=== PATIENT | male | born 1985 | race Caucasian/White ===

== ENCOUNTER 2020-07-26 03:07 | Emergency (ER) | payer MEDICAID, SELFPAY ==
--- NOTE | 2020-07-26 03:18 | ED.GENADULT ---
HPI - General Adult General Chief complaint: Extremity Injury, Lower Stated complaint: toe pain Time Seen by Provider: 07/26/20 03:13 History of Present Illness HPI narrative: Patient is a 34-year-old gentleman who presents the emergency department with chief complaint of left great toe pain. Patient states that he has had an ingrown toenail for some time now and states that he got worse tonight. The patient denies fever denies streaking states he tried to drain the wound but could not get any pus out of it. Patient denies streaks up his leg denies fluctuance. Related Data Home Medications Medication Instructions Recorded Confirmed No Home Medications 07/26/20 Allergies Allergy/AdvReac Type Severity Reaction Status Date / Time No Known Allergies Allergy Unverified 07/26/20 03:32 Review of Systems Review of Systems: Narrative: A 10 system review of systems was completed on the patient and is negative except for what is stated in the HPI. Nursing and ancillary documentation was reviewed. PMFSH Social History Social History Gender identity (if verbalized by the patient): Male Sexual Orientation (if Verbalized by the Patient): Straight or Heterosexual Comments Patient reports no significant past medical history Social history the patient was recently released from [facility] denies illicit drug use Exam Narrative: Exam Narrative: GENERAL: Well-appearing, well-nourished, and in no acute distress. HEAD: Normocephalic, atraumatic. EYES: PERRLA and EOMI. ENT: Nares clear, no rhinorrhea or epistaxis. Mucous membranes moist. NECK: Supple. CHEST: Clear to auscultation. No respiratory distress. HEART: Regular rate and rhythm. No murmur heard. Normal peripheral pulses. ABDOMEN: Soft, nontender, nondistended, normal active bowel sounds. EXTREMITIES: Normal range of motion. No edema. Left great toe there is erythema in the cuticle area and along the sides. The nail is broken at an angle. There is no fluctuance noted SKIN: Warm, dry, no rash. NEURO: No focal deficits. Alert and oriented x3. PSYCH: Normal mood and affect. Course Vital Signs Vital signs: Vital Signs Temperature 37.0 C 07/26/20 03:27 Pulse Rate 113 H 07/26/20 03:27 Respiratory Rate 18 07/26/20 03:27 Blood Pressure 137/99 H 07/26/20 03:27 Pulse Oximetry 100 07/26/20 03:27 Temperature 37.0 C 07/26/20 03:27 Pulse Rate 107 H 07/26/20 03:30 Respiratory Rate 18 07/26/20 03:30 Blood Pressure 137/99 H 07/26/20 03:30 Pulse Oximetry 99 07/26/20 03:30 Medical Decision Making Vital Signs Vital Signs: Vital Signs Temperature 37.0 C 07/26/20 03:27 Pulse Rate 113 H 07/26/20 03:27 Respiratory Rate 18 07/26/20 03:27 Blood Pressure 137/99 H 07/26/20 03:27 Pulse Oximetry 100 07/26/20 03:27 Temperature 37.0 C 07/26/20 03:27 Pulse Rate 107 H 07/26/20 03:30 Respiratory Rate 18 07/26/20 03:30 Blood Pressure 137/99 H 07/26/20 03:30 Pulse Oximetry 99 07/26/20 03:30 Discharge Plan Discharge Clinical Impression: Ingrowing toenail with infection Patient Disposition: Home, Self-Care Condition: Stable Instructions: Antibiotic Form, Ingrown Nail (ED) Prescriptions: No Action No Home Medications RF: 0 Follow-up/Referrals: Keanu Ybarra MD [Physician] - UNKNOWN,DOCTOR [Non-Staff] - Time of Disposition:
[2020-07-26 03:27] VITALS: BP 137/99; PULSE 113; RESP 18; TEMP 37; O2SAT 100
[2020-07-26 03:30] VITALS: BP 137/99; PULSE 107; RESP 18; O2SAT 99
[2020-07-26] MEDS: HYDROcodone/acetaminophen (*CRX) 5-325 MG TABLET 1 TAB PO (03:31)
== END 2020-07-26 04:20 | disposition home or self-care (01) ==
PROVIDERS: Emergency Provider Emergency Medicine
DX: L60.0 Ingrowing nail (principal); L08.9 Local infection of the skin and subcutaneous tissue, unspecified
CPT/HCPCS: 99283; A9270

== ENCOUNTER 2020-09-11 15:41 | Inpatient (IN) | payer MEDICAID, SELFPAY ==
[2020-09-11] VITALS (33 sets, daily range): BP systolic 101–134; BP diastolic 65–97; PULSE 110–138; RESP 17–85; TEMP 36–36.6; O2SAT 22–96; BMI 35.9
--- NOTE | ~2020-09-11 | XR_ITS ---
EXAMINATION: XR chest 1V portable DATE: 09/11/2020 17:15 INDICATION: Heroin overdose. TECHNIQUE: frontal view of the chest was obtained. COMPARISON: Chest radiograph dated 03/01/2019 FINDINGS: Asymmetric patchy airspace opacities throughout the left lung with small region in the right infrahil ar region. No pleural effusion or pneumothorax. The cardiomediastinal silhouette is normal. IMPRESSION: 1. Bilateral lung disease more extensive on the left which given provided history and distribution is most suspicious for aspiration pneumonitis with differential including pneumonia, asymmetric pulmona ry edema and pulmonary hemorrhage. Reviewed, dictated and finalized at location A. IZATION ENGINEER IMPRESSION: 1. Bilateral lung disease more extensive on the left which given provided histo ry and distribution is most suspicious for aspiration pneumonitis with differen tial including pneumonia, asymmetric pulmonary edema and pulmonary hemorrhage.
--- NOTE | ~2020-09-11 | CT_ITS ---
EXAMINATION: CTA chest PE protocol EXAM DATE: 09/11/2020 17:44 INDICATION: Shortness of breath. TECHNIQUE: Spiral CTA of the chest (pulmonary arteries) was performed with 100 cc Omnipaque 350 intr avenous contrast injection. Images were acquired during the pulmonary arterial phase. Coronal maxi mum intensity projection 3D-reconstructions were created by the technologist on dedicated workstation . Axial, coronal and sagittal reformatted images were reviewed. The dose-length product (DLP) for t his examination was 973.43 mGy-cm. The exposure was tailored according to patient size (auto mA exp osure control), and iterative reconstruction (ASIR) was used as additional dose reduction technique. Correlation is made to chest x-ray earlier same date. FINDINGS: There are no pulmonary emboli in the 1st through 3rd order (central and interlobar) pulmon magan arteries. Some loss of attenuation in the segmental pulmonary arteries due to respiratory motion , but no intraluminal filling defects suspected. No thoracic aortic dissection. There is dense left lower lobe multisegmental consolidation and smaller segmental right lower lobe co nsolidation. Surrounding groundglass opacities and also in the upper lobes left greater than right. L ikely acute infectious process. Would consider both viral and bacterial pneumonia. There are no pleur al or pericardial effusions. Tracheobronchial tree is patent. There is no mediastinal, hilar or a xillary lymphadenopathy. There is no pneumothorax. Heart normal in size. No evidence of coronar y arterial calcification. Upper abdomen is unremarkable. There is thoracic spondylosis without ost eoblastic or osteolytic lesions identified. IMPRESSION: 1. Limited segmental evaluation, but no pulmonary emboli are suspected. 2. Extensive left-sided, moderate right-sided pneumonia. Reviewed, dictated and finalized at location A. E SALESPERSON
--- NOTE | 2020-09-11 15:49 | PC.NURSE ---
vorb to give narcan 2mg ivp from dr shearer in room. saturation remains to be 69%, pt placed on NRB
--- NOTE | 2020-09-11 15:53 | PC.NURSE ---
PT CONTINUES TO STAY WITH SATURATION OF 68-70%
[2020-09-11 16:02] LABS: Alveolar/Arterial O2 Gradient 630.1 mmHg; Base Excess ABG -4.5 mEq/l (+/-2.0); Fractional Inspired Oxygen 100 %; HCO3 ABG 21.8 mEq/l (22.0-26.0); Methemoglobin ABG 0.4 %THb (0-1.5); Oxyhemoglobin 69.9 % THb (90.0-100.0); PCO2 ABG 44.7 mmHg (35.0-45.0); PO2 FiO2 Ratio Arterial Blood 0.38 %; Reduced Hemoglobin 26.7 %THb (0-5.0); Total Hemoglobin 17.4 g/dL (12.0-18.0); pH ABG 7.307 (7.350-7.450)
[2020-09-11 16:04] LABS: Oxygen Saturation ABG 67.1 % (95.0-100.0); PO2 ABG 38.2 mmHg (80.0-100.0)
[2020-09-11] MEDS: ONDANSETRON INJ 4 MG/2 ML VIAL (16:04)
[2020-09-11] MEDS: SODIUM CHLORIDE 0.9% IV 1,000 ML 999 ML (16:04)
[2020-09-11] MEDS: NALOXONE HCL INJ 2 MG/2 ML AMP 6 MG (16:04)
[2020-09-11 16:05] LABS: Device NON-REBREATHER MASK; Modified Allen's Test Pass; Site Drawn RIGHT RADIAL
--- NOTE | 2020-09-11 16:08 | ECG_ITS ---
Measurements Intervals [place] Rate: 121 P: 39 MT: 174 QRS: -1 QRSD: 85 T: 25 QT: 302 QTc: 429 Interpretive Statements SINUS TACHYCARDIA DELAYED PRECORDIAL R/S TRANSITION LOW QRS VOLTAGE IN PRECORDIAL LEADS BASELINE ARTIFACT- I, II, AVR, AVL, AVF, V1-V2, V5-V6 ABNORMAL ECG Electronically Signed On 09-11-2020 19:47:16 [employer] SOFTWARE ENGINEER[employer] by Kory Islas D.O.
--- NOTE | 2020-09-11 16:19 | PC.NURSE ---
decision made to bipap the pt respiratory in room
[2020-09-11 16:29] LABS: Basophils Percent Auto 0.2 % (0.2-1.2); Eosinophils Absolute Auto 0.1 K/mm3 (0-0.3); Eosinophils Percent Auto 0.3 % (0-4.4); Hematocrit 50.1 % (42.0-52.0); Immature Granulocyte Absolute 0.08 K/mm3 (0.00-0.031); Immature Granulocyte Percent A 0.4 % (0-0.5); Lymphocytes Absolute Auto 2.05 K/mm3 (0.9-3.2); Lymphocytes Percent Auto 11.5 % (18.3-44.2); Mean Corpuscular HGB Conc 33.9 g/dl (32-36); Mean Corpuscular Volume 97.3 fl (80-100); Mean Platelet Volume 10.9 fl (7.4-10.4); Monocytes Absolute Auto 0.8 K/mm3 (0.1-0.6); Monocytes Percent Auto 4.5 % (2.6-8.5); Neutrophils Absolute Auto 14.9 K/mm3 (1.3-6.7); Neutrophils Percent Auto 83.1 % (45.5-73.1); Platelet Count Result 195 k/mm3 (150-375); Red Blood Count 5.15 M/mm3 (4.6-6.20); Red Cell Distribution Width 13.2 % (11.5-14.5); White Blood Count 17.9 K/mm3 (4.5-10.0)
--- NOTE | 2020-09-11 16:30 | PC.NURSE ---
NO URINE SPECIMEN AT THIS TIME WORKING ON CORRECTING O2 SATURATION
[2020-09-11 16:38] LABS: INR 0.9; Prothrombin Time 12.5 Seconds (11.1-14.7)
[2020-09-11 16:39] LABS: Partial Thromboplastin Time 28.5 SECONDS (22.3-36.8)
[2020-09-11 16:41] LABS: Alanine Aminotransferase 48 U/L (4-50); Albumin Level 3.5 g/dL (3.5-5.1); Alkaline Phosphatase 96 U/L (38-126); Anion Gap 3 mmol/L (8-16); Aspartate Amino Transferase 32 U/L (17-59); Bilirubin,Total 0.3 mg/dL (0.2-1.3); Blood Urea Nitrogen 17 mg/dL (9-20); Calcium 7.8 mg/dL (8.4-10.2); Carbon Dioxide 29 mmol/L (22-30); Chloride 105 mmol/L (98-107); Estimated CRCL calculation 143 ml/min; Estimated Glomerular Filt Rate > 60; Glucose 230 mg/dL (75-110); Potassium 4.4 mmol/L (3.4-5.0); Sodium 137 mmol/L (137-145)
[2020-09-11 16:53] LABS: NT Pro B Type Natriuretic Pept 23 PG/ML (5-100); Troponin I < 0.012 ng/mL (0.000-0.034)
--- NOTE | 2020-09-11 16:55 | PC.NURSE ---
Called lab to add on d dimer
--- NOTE | 2020-09-11 17:03 | PC.NURSE ---
asked pt for urine sample pt stated he is unable to provide sample at this time
--- NOTE | 2020-09-11 17:15 | PC.NURSE ---
tolerating bipap a little better sat noted to drop to 86% respiratory to reassess
[2020-09-11 17:38] LABS: Alveolar/Arterial O2 Gradient 634.3 mmHg; Base Excess ABG -10.8 mEq/l (+/-2.0); Fractional Inspired Oxygen 100 %; Oxygen Content ABG 14.6 %vol (16.0-22.0); Oxygen Saturation ABG 91.3 % (95.0-100.0); Oxyhemoglobin 90.4 % THb (90.0-100.0); PO2 ABG 58.9 mmHg (80.0-100.0); PO2 FiO2 Ratio Arterial Blood 0.59 %; Total Hemoglobin 11.5 g/dL (12.0-18.0); pH ABG 7.399 (7.350-7.450)
[2020-09-11 17:41] LABS: PCO2 ABG 19.8 mmHg (35.0-45.0)
[2020-09-11 17:42] LABS: Device NON-INVASIVE VENT; Modified Allen's Test Pass; Non-Invasive Expiratory Pressure 6 CMH2O; Non-Invasive Inspiratory Pressure 18 CMH2O; Non-Invasive Vent Rate 10 /MIN; Site Drawn LEFT RADIAL
--- NOTE | 2020-09-11 17:49 | PC.NURSE ---
decision made to put pt on high arti NC
--- NOTE | 2020-09-11 18:00 | PC.NURSE ---
PT ASKED FOR URINE, UNABLE TO AT THIS TIME POLITELY REFUSED CATHETER
--- NOTE | 2020-09-11 18:07 | ED.GENADULT ---
HPI - General Adult General Chief complaint: Overdose Stated complaint: overdose Time Seen by Provider: 09/11/20 15:49 Source: EMS Mode of arrival: EMS History of Present Illness HPI narrative: Patient is 34 years old white male brought to the emergency room by ambulance because found by his family unresponsive. History of opioid abuse. Patient received 6 mg of Narcan prior to arrival to the emergency room. Currently patient is awake, alert oriented x4 with hypoxia. Patient denies shortness of breath or chest pain. Patient reports taking fentanyl and heroin, probably too much today compared to the past. Patient denies any fever, chills, nausea, vomiting Related Data Home Medications Medication Instructions Recorded Confirmed No Home Medications 07/26/20 09/11/20 Allergies Allergy/AdvReac Type Severity Reaction Status Date / Time No Known Allergies Allergy Verified 09/11/20 15:52 Review of Systems Review of Systems: Narrative: CONSTITUTIONAL: Denies fever, chills, or sweats. EYES: Denies visual changes, redness, or discharge. ENT: Denies rhinorrhea, congestion, sore throat, or otalgia. CARDIOVASCULAR: Denies chest pain, palpitations, or edema. RESPIRATORY: Denies cough or dyspnea. GASTROINTESTINAL: Denies abdominal pain, nausea, vomiting, or diarrhea. GENITOURINARY: Denies dysuria or hematuria. SKIN: Denies rash or itching. MUSCULOSKELETAL: Denies back pain, joint pain, or myalgia. NEUROLOGIC: Denies headache, numbness, or weakness. PSYCHIATRIC: Denies anxiety or depression. PMFSH Social History Social History Gender identity (if verbalized by the patient): Male Exam Narrative: Exam Narrative: General appearance: Well-developed, well-nourished Skin: Normal color Head: Normocephalic, nontraumatic Eyes: Clear conjunctiva ENT: Oropharynx normal, ears normal, nose normal Neck: Supple, nontender Chest and respiratory: Airway patent, no respiratory distress, no accessory muscle use Heart: Tachycardia Abdomen: Soft, nontender, no organomegaly, quiet bowel sounds Vascular: Normal peripheral pulses, normal capillary refill. Musculoskeletal: Normal range of motion, nontender back Neurologic: Alert and oriented ?3, BATTERY CHARGER TESTER is normal as tested, no gross motor deficit Course Course Emergency Course: Stable Vital Signs Vital signs: Vital Signs Temperature 36.0 C L 09/11/20 15:39 Pulse Rate 132 H 09/11/20 15:39 Respiratory Rate 27 H 09/11/20 15:39 Blood Pressure 108/71 09/11/20 15:39 Pulse Oximetry 60 L 09/11/20 15:39 Temperature 36.0 C L 09/11/20 15:39 Pulse Rate 121 H 09/11/20 17:47 Respiratory Rate 22 H 09/11/20 17:47 Blood Pressure 131/97 H 09/11/20 17:46 Pulse Oximetry 92 09/11/20 17:47 Medical Decision Making MDM Narrative Medical decision making narrative: Opioid overdose with respiratory depression is my concern. Also aspiration pneumonia. Labs, D-dimer, blood culture, ABG, chest x-ray, ordered. Further plan to follow Differential Diagnosis Differential Diagnosis: Opioid respiratory depression, aspiration pneumonia, pulmonary embolism Vital Signs Vital Signs: Vital Signs Temperature 36.0 C L 09/11/20 15:39 Pulse Rate 132 H 09/11/20 15:39 Respiratory Rate 27 H 09/11/20 15:39 Blood Pressure 108/71 09/11/20 15:39 Pulse Oximetry 60 L 09/11/20 15:39 Temperature 36.0 C L 09/11/20 15:39 Pulse Rate 121 H 09/11/20 17:47 Respiratory Rate 22 H 09/11/20 17:47 Blood Pressure 131/97 H 09/11/20 17:46 Pulse Oximetry 92 09/11/20 17:47 Lab Data Result diagrams: 09/11/20 16:21 09/11/20 16:21 Labs
[2020-09-11] MEDS: SODIUM CHLORIDE 0.9% IV 1,000 ML 100 ML IV CONT (20:44)
--- NOTE | 2020-09-11 21:52 | PM.IMHP ---
H&P: HPI History of Present Illness Date/Time: 09/11/20 21:52 Chief Complaint: Unresponsive due to opiate overdose Narrative: Juma Almeida is a 34 year old male who has a history of drug use with narcotics. Patient was brought to the emergency room by ambulance because he was found by his family to be unresponsive. The patient stated that he did use some heroin button and snorted fentanyl. The patient received 6 mg of nor can prior to arrival to the emergency room. The patient stated that he took more on drugs and he normally takes. The patient denies any exposure to COVID. He denies any fever chills. Patient's pulse rate was 121-132 respirations were 22-27. His D-dimer was elevated to 3.5. White count 17.9. Troponin was negative. The pH on his 1st gases was 7.307 and the patient was placed on a BiPAP repeat gases pH was 7.399. Patient is currently on a non-rebreather and he is falling asleep during the interview. On the left which given provided history and distributions most suspicious for aspiration pneumonia with differential including pneumonia, asymmetric pulmonary edema and pulmonary hemorrhage. LL evaluation but no pulmonary emboli are suspected on his chest CT a. Extensive left-sided moderate right-sided pneumonia. The patient was given Zofran IV fluids and Levaquin. Then he was started on Zosyn for possibility of aspiration pneumonia. The patient was swabbed for COVID-19 and placed on droplet isolation. Patient was admitted inpatient services on the date of service of 09/11/2020 Review of Systems Review of Systems: All systems reviewed & are unremarkable except as noted in HPI and below Constitutional: Constitutional: Reports as per HPI and Reports no additional constitutional complaints Eyes: Eyes: Reports as per HPI and Reports no additional eye complaints ENT: Reports system reviewed and no additional complaints, except as documented and Reports Normal hearing present Cardiovascular: Cardiovascular: Reports no additional cardiovascular complaints Respiratory: Respiratory: Reports no additional respiratory complaints and Reports no additional respiratory complaints Gastrointestinal: Gastrointestinal: Reports as per HPI and Reports no additional gastrointestinal complaints Musculoskeletal: Musculoskeletal: Reports no additional musculoskeletal complaints Integumentary/Breasts: Skin/Breast: Reports system reviewed and no additional complaints, except as docu and Reports as per HPI Neurologic: Reports system reviewed and no additional complaints, except as documented, Reports as per HPI and Reports Normal hearing present Psychiatric: Psychiatric: Reports no additional psychiatric complaints and Reports as per HPI Endocrine: Endocrine: Reports no additional endocrine complaints Hematologic/Lymphatic: Hematologic/Lymphatic: Reports no additional hematologic/lymphatic complaints Allergic/Immunologic: Allergic/Immunologic: Reports no additional allergic/immunologic complaints [facility] Past Medical History Medical History (Updated 09/11/20 @ 22:11 by Alessandra Dumont NP) Tobacco abuse Surgical History Surgical History (Updated 09/11/20 @ 22:03 by Alessandra Dumont NP) No pertinent past surgical history Family History Family History (Updated 09/11/20 @ 22:04 by Alessandra Dumont NP) Mother Hepatitis Other Unknown family medical history Social History Social History (Updated 09/11/20 @ 22:06 by Alessandra Dumont NP) Social History: The patient has a 16-year-old son. The patient smokes a half pack a cigarettes a day. He is from his lives with his girlfriend. He is not currently working at this time. He tends to use heroin and fentanyl but does not use marijuana. Denies any alcohol use. The patient tells me does not have a durable power workers compensation attorney for healthcare and that he is a full code. Alcohol intake: never Substance use: current Substance use type: heroin and opiates
[2020-09-12] VITALS (19 sets, daily range): BP systolic 108–116; BP diastolic 58–75; PULSE 95–122; RESP 12–20; TEMP 35.8–36.9; O2SAT 91–96
[2020-09-12 00:29] LABS: Add Urine Microscopic? YES; Appearance Urine Clear (Clear); Bacteria Urine Trace /hpf; Bilirubin Urine Negative (Negative); Blood Urine Negative (Negative); Color Urine Yellow (Yellow); Glucose Urine UA 1+ mg/dL (Negative); Ketones Urine Negative (Negative); Leukocyte Esterase Ur Negative LEU/UL (Negative); Mucus Urine Rare /lpf; Nitrate Urine Negative (Negative); Protein Urine 1+ mg/dL (Negative); RBC Urine 0-2 /hpf (0-2); Squamous Epithelial Cell Urine Rare /hpf (Few); Urobilinogen Urine Negative mg/dL (<2.0)
[2020-09-12 00:30] LABS: Specific Grav Ur 1.047 (1.001-1.035)
[2020-09-12 00:46] LABS: Alveolar/Arterial O2 Gradient 579.5 mmHg; Base Excess ABG -0.8 mEq/l (+/-2.0); Carboxyhemoglobin 0.3 % THb (0-2.0); Fractional Inspired Oxygen 100 %; Methemoglobin ABG 0.7 %THb (0-1.5); Oxygen Content ABG 23.9 %vol (16.0-22.0); Oxygen Saturation ABG 96.4 % (95.0-100.0); Oxyhemoglobin 95.6 % THb (90.0-100.0); PO2 ABG 88.5 mmHg (80.0-100.0); PO2 FiO2 Ratio Arterial Blood 0.88 %; Reduced Hemoglobin 3.4 %THb (0-5.0); Total Hemoglobin 17.8 g/dL (12.0-18.0); pH ABG 7.362 (7.350-7.450)
[2020-09-12 00:47] LABS: Device NON-REBREATHER MASK; Modified Allen's Test Pass; Site Drawn RIGHT RADIAL
[2020-09-12 01:08] LABS: Barbiturate Screen Urine Negative (Negative); Benzodiazepines Screen Urine Negative (Negative)
[2020-09-12 01:13] LABS: Cannabinoid Screen Urine Negative (Negative); Cocaine Screen Urine Negative (Negative); Methadone Screen Urine Negative (Negative); Opiate Screen Urine Negative (Negative); Phencyclidine Screen Urine Negative (Negative)
[2020-09-12 01:24] LABS: Amphetamine Screen Urine Positive (Negative)
[2020-09-12] MEDS: ALBUTEROL SULFATE NEB 2.5 MG/0.5 ML INH 5 MG INHALATION ×4 (03:35→20:49)
[2020-09-12] MEDS: SODIUM CHLORIDE 0.9% IV 1,000 ML 100 ML IV CONT ×2 (05:24→17:38)
[2020-09-12 05:43] LABS: Basophils Percent Auto 0.1 % (0.2-1.2); Eosinophils Percent Auto 0.1 % (0-4.4); Hematocrit 45.1 % (42.0-52.0); Hemoglobin 15.6 g/dL (14.0-18.0); Immature Granulocyte Absolute 0.03 K/mm3 (0.00-0.031); Immature Granulocyte Percent A 0.2 % (0-0.5); Lymphocytes Absolute Auto 1.63 K/mm3 (0.9-3.2); Lymphocytes Percent Auto 12.7 % (18.3-44.2); Mean Corpuscular HGB Conc 34.6 g/dl (32-36); Mean Corpuscular Hemoglobin 32.4 pg (26-34); Mean Corpuscular Volume 93.6 fl (80-100); Mean Platelet Volume 11.3 fl (7.4-10.4); Monocytes Absolute Auto 0.7 K/mm3 (0.1-0.6); Monocytes Percent Auto 5.2 % (2.6-8.5); Neutrophils Absolute Auto 10.5 K/mm3 (1.3-6.7); Neutrophils Percent Auto 81.7 % (45.5-73.1); Platelet Count Result 193 k/mm3 (150-375); Red Blood Count 4.82 M/mm3 (4.6-6.20); White Blood Count 12.9 K/mm3 (4.5-10.0)
[2020-09-12 05:50] LABS: Anion Gap 4 mmol/L (8-16); Blood Urea Nitrogen 17 mg/dL (9-20); Calcium 7.9 mg/dL (8.4-10.2); Carbon Dioxide 26 mmol/L (22-30); Chloride 104 mmol/L (98-107); Estimated CRCL calculation 159 ml/min; Estimated Glomerular Filt Rate > 60; Glucose 118 mg/dL (75-110); Potassium 4.1 mmol/L (3.4-5.0); Sodium 134 mmol/L (137-145)
[2020-09-12] MEDS: ENOXAPARIN 40 MG/0.4 ML SYRINGE SUB-Q (07:59)
--- NOTE | 2020-09-12 13:10 | PM.IMPN ---
Progress Note: A&P Assessment and Plan (1) Aspiration pneumonia: Qualifiers: Aspiration pneumonia type: unspecified Laterality: bilateral Lung location: lower lobe of lung Qualified Code(s): J69.0 - Pneumonitis due to inhalation of food and vomit Code(s): J69.0 - Pneumonitis due to inhalation of food and vomit Status: Acute Assessment and Plan: On Zosyn Continuous pulse ox (2) Opioid overdose: Qualifiers: Encounter type: initial encounter Injury intent: accidental or unintentional Qualified Code(s): T40.2X1A - Poisoning by other opioids, accidental (unintentional), initial encounter Code(s): T40.2X1A - Poisoning by other opioids, accidental (unintentional), initial encounter Status: Acute Assessment and Plan: Resolved. Needs follow up in the outpatient setting (3) Tobacco abuse: Code(s): Z72.0 - Tobacco use Status: Chronic Assessment and Plan: Nicotine patch as needed (4) Suspected COVID-19 virus infection: Code(s): Z20.822 - Contact with and (suspected) exposure to COVID-19 Status: Acute Assessment and Plan: Awaiting serology Subjective Date/time seen: 09/12/20 13:10 Patient states that he is feeling well. Review of Systems Review of Systems: Narrative: Patient basically with complains. Constitutional: Comments: no fevers, no rigors, no chills. Eyes: Comments: no vision changes. ENT: Comments: no nasal congestion, no ear ache, no throat pain. Cardiovascular: Comments: no chest pain, no leg swelling, no orthopnea, no pnd. Respiratory: Comments: no sob, no cough, no sputum production. Gastrointestinal: Comments: no n/v/abdominal pain. Musculoskeletal: Comments: no joint pain. Integumentary/Breasts: Comments: no rashes. Neurologic: Comments: loc, unresponsiveness. Exam Narrative: Exam Narrative: Sitting in bed Const: General: cooperative, comfortable, no acute distress, alert, awake and Physically active Nutritional Appearance: overweight Orientation/consciousness: patient oriented x3 Limitations: no limitations HENMT: Head: normal to inspection and normocephalic Ears: hearing grossly normal bilaterally General nose exam: Normal external nose present Face and sinus: normal facial exam Eyes: General: appearance normal, both eyes and all related structures Pupils: Equal, round and reactive pupils present EOM: EOMs intact bilaterally Neck: Neck: no lymphadenopathy, supple and no JVD Resp: Auscultation: rales on the right at the base and bilateral Cardio: Jugular venous distension: no JVD Rate: regular rate Rhythm: regular rhythm GI: Inspection: obesity GI Palp: Yes Soft to palpation and Yes No hepatosplenomegaly present Skin: Rashes: no rashes Neuro: General: patient oriented x3, CN's II-XI intact bilaterally and other (Unresponsive.) Cranial nerves: Yes CN's II-XII intact bilaterally and Yes Equal, round and reactive pupils present Cognition (Neuro): normal cognition Speech: normal speech Motor exam (neuro): 5/5 motor strength present throughout Objective Data Vital Signs Vital Signs: Vital Signs - 24 hr 09/11/20 15:39 09/11/20 15:52 09/11/20 16:00 Temperature 96.8 F L Pulse Rate 132 H 138 H 129 H Respiratory Rate 27 H 28 H 38 H Blood Pressure 108/71 Pulse Oximetry 60 L 75 L 74 L 09/11/20 16:01 09/11/20 16:02 09/11/20 16:15 Temperature Pulse Rate 136 H 129 H 130 H Respiratory Rate 25 H 18 21 H Blood Pressure 101/73 Pulse Oximetry 89 L 72 L 79 L 09/11/20 16:20 09/11/20 16:30 09/11/20 16:45 Temperature Pulse Rate 132 H 131 H 132 H Respiratory Rate 85 H 22 H 26 H Blood Pressure 111/68 Pulse Oximetry 22 L 93 83 L 09/11/20 17:00 09/11/20 17:14 09/11/20 17:15 Temperature Pulse Rate 126 H 125 H 122 H Respiratory Rate 17 31 H 29 H Blood Pressure 109/65 109/65 Pulse Oximetry 90 84 L 09/11/20 17:45 09/11/20 17:46 09/11/20 17:47 Tem
[2020-09-12 20:12] LABS: SARS-CoV-2 RNA PCR Negative
[2020-09-13] VITALS (12 sets, daily range): BP systolic 101–120; BP diastolic 51–67; PULSE 88–114; RESP 12–26; TEMP 36.6–37.1; O2SAT 83–98
[2020-09-13] MEDS: SODIUM CHLORIDE 0.9% IV 1,000 ML 100 ML IV CONT ×2 (00:11→15:48)
[2020-09-13] MEDS: ALBUTEROL SULFATE NEB 2.5 MG/0.5 ML INH 5 MG INHALATION ×2 (08:19→15:15)
[2020-09-13] MEDS: ENOXAPARIN 40 MG/0.4 ML SYRINGE SUB-Q (08:36)
--- NOTE | 2020-09-13 10:55 | PC.NURSE ---
This patient, Juma Almeida, was transferred to [[id number]] on 09/13/20 at 1055. Personal belongings sent with patient. Report given to [FELIPE OLVERA]. Appropriate documentation sent with patient.
--- NOTE | 2020-09-13 17:57 | PM.IMPN ---
Progress Note: A&P Assessment and Plan (1) Aspiration pneumonia: Qualifiers: Aspiration pneumonia type: unspecified Laterality: bilateral Lung location: lower lobe of lung Qualified Code(s): J69.0 - Pneumonitis due to inhalation of food and vomit Code(s): J69.0 - Pneumonitis due to inhalation of food and vomit Status: Acute Assessment and Plan: On Zosyn Appears to have improved. (2) Opioid overdose: Qualifiers: Encounter type: initial encounter Injury intent: accidental or unintentional Qualified Code(s): T40.2X1A - Poisoning by other opioids, accidental (unintentional), initial encounter Code(s): T40.2X1A - Poisoning by other opioids, accidental (unintentional), initial encounter Status: Acute Assessment and Plan: Will follow up in the outpatient setting. (3) Tobacco abuse: Code(s): Z72.0 - Tobacco use Status: Chronic Assessment and Plan: Nicotine patch as needed (4) Suspected COVID-19 virus infection: Code(s): Z20.822 - Contact with and (suspected) exposure to COVID-19 Status: Acute Assessment and Plan: Ruled out Subjective Date/time seen: 09/13/20 17:57 I feel much better. Review of Systems Review of Systems: Narrative: no new issues Constitutional: Comments: no fevers, no rigors, no chills. Cardiovascular: Comments: no chest pain, no pnd, no orthopnea. Respiratory: Comments: no sob. Gastrointestinal: Comments: no n/v/abdominal pain. Musculoskeletal: Comments: no muscle pain. Integumentary/Breasts: Comments: no rashes Exam Narrative: Exam Narrative: Sitting in bed. Const: General: comfortable, no acute distress, alert, awake and Physically active Nutritional Appearance: overweight Orientation/consciousness: patient oriented x3 HENMT: Head: normocephalic Ears: hearing grossly normal bilaterally General nose exam: Normal external nose present Face and sinus: normal facial exam Eyes: General: appearance normal, both eyes and all related structures Pupils: Equal, round and reactive pupils present EOM: EOMs intact bilaterally Neck: Neck: no lymphadenopathy, supple and no JVD Resp: Effort & Inspection: normal respiratory effort and able to speak in complete sentences Auscultation: clear to auscultation bilaterally Cardio: Jugular venous distension: no JVD Rate: regular rate Rhythm: regular rhythm GI: GI Palp: Yes Soft to palpation and Yes No hepatosplenomegaly present Skin: Rashes: no rashes Neuro: General: patient oriented x3 and CN's II-XI intact bilaterally Cranial nerves: Yes CN's II-XII intact bilaterally and Yes Equal, round and reactive pupils present Extrem: General: no pedal edema Objective Data Vital Signs Vital Signs: Vital Signs - 24 hr 09/12/20 20:00 09/12/20 20:49 09/12/20 21:03 Temperature Pulse Rate 119 H 99 Respiratory Rate 18 16 Blood Pressure Pulse Oximetry 92 09/13/20 00:00 09/13/20 04:08 09/13/20 04:09 Temperature 98.4 F Pulse Rate 110 H Respiratory Rate 16 Blood Pressure 116/61 Pulse Oximetry 92 86 L 93 09/13/20 06:02 09/13/20 08:00 09/13/20 08:22 Temperature 97.8 F Pulse Rate 102 H Respiratory Rate 12 Blood Pressure 101/51 L Pulse Oximetry 91 90 90 09/13/20 08:26 09/13/20 08:32 09/13/20 15:20 Temperature Pulse Rate 114 H 112 H 107 H Respiratory Rate 26 H 20 20 Blood Pressure Pulse Oximetry 09/13/20 15:25 Temperature Pulse Rate 88 Respiratory Rate 20 Blood Pressure Pulse Oximetry Intake/Output Intake/Output: Intake & Output 09/10/20 09/11/20 09/12/20 09/13/20 23:59 23:59 23:59 23:59 Intake Total 1200 7080 2350 Output Total 3200 1980 Balance 1200 3880 370 Meds/Results Medications: Active Medications Generic Name Dose Route Start Last Admin Trade Name Freq PRN Reason Stop Dose Admin Albuterol 5 mg 09/11/20 20:00 09/13/20 15:15 Albuterol Sulfate Neb 2.5
[2020-09-14] MEDS: SODIUM CHLORIDE 0.9% IV 1,000 ML 100 ML IV CONT (03:39)
[2020-09-14] MEDS: ALBUTEROL SULFATE NEB 2.5 MG/0.5 ML INH 5 MG INHALATION (03:47)
[2020-09-14 03:48] VITALS: PULSE 94; RESP 20
[2020-09-14 04:00] VITALS: BP 113/66; PULSE 100; RESP 18; TEMP 37.7; O2SAT 92
[2020-09-14 06:05] LABS: Basophils Percent Auto 0.1 % (0.2-1.2); Eosinophils Absolute Auto 0.2 K/mm3 (0-0.3); Eosinophils Percent Auto 2.7 % (0-4.4); Hematocrit 44.6 % (42.0-52.0); Immature Granulocyte Absolute 0.03 K/mm3 (0.00-0.031); Immature Granulocyte Percent A 0.4 % (0-0.5); Immature Platelet Fraction Pct 5.7 % (0.9-11.2); Lymphocytes Absolute Auto 2.02 K/mm3 (0.9-3.2); Lymphocytes Percent Auto 27.4 % (18.3-44.2); Mean Corpuscular HGB Conc 33.6 g/dl (32-36); Mean Corpuscular Hemoglobin 32.1 pg (26-34); Mean Corpuscular Volume 95.3 fl (80-100); Mean Platelet Volume 11.3 fl (7.4-10.4); Monocytes Absolute Auto 0.5 K/mm3 (0.1-0.6); Monocytes Percent Auto 6.9 % (2.6-8.5); Neutrophils Absolute Auto 4.6 K/mm3 (1.3-6.7); Neutrophils Percent Auto 62.5 % (45.5-73.1); Platelet Count Result 147 k/mm3 (150-375); Red Blood Count 4.68 M/mm3 (4.6-6.20); White Blood Count 7.4 K/mm3 (4.5-10.0)
[2020-09-14 06:10] LABS: Anion Gap 4 mmol/L (8-16); Blood Urea Nitrogen 10 mg/dL (9-20); Calcium 8.3 mg/dL (8.4-10.2); Carbon Dioxide 24 mmol/L (22-30); Chloride 109 mmol/L (98-107); Estimated CRCL calculation 206 ml/min; Estimated Glomerular Filt Rate > 60; Glucose 109 mg/dL (75-110); Potassium 3.9 mmol/L (3.4-5.0); Sodium 137 mmol/L (137-145)
[2020-09-14] MEDS: ENOXAPARIN 40 MG/0.4 ML SYRINGE SUB-Q (08:26)
--- NOTE | 2020-09-14 10:29 | PCRCNOTE ---
PT. REFUSED BREATHING TX; MESSAGE LEFT FOR DR. FAGAN.
[2020-09-14 10:35] VITALS: O2SAT 93
--- NOTE | 2020-09-14 10:38 | PC.NURSE ---
Patient notified of risks of leaving AMA. Dr. Wetzel called multiple time and left message and paged over head. Patient signed AMA form.
--- NOTE | 2020-09-14 11:40 | PC.NURSE ---
Dr. Wetzel called again and she answered. She was then notified of the multiple calls and messages sent to her regarding the patient. Notified that patient signed out AMA at 1038. She called in an antibiotic and she wants me to call him so he can pick it up.
--- NOTE | 2020-10-12 15:52 | PM.DS ---
DS: Admitting Diagnosis Admitting Diagnosis Admitting Diagnosis: 1) Aspiration pneumonia: (2) Opioid overdose: (3) Tobacco abuse: (4) Suspected COVID-19 virus infection: DS: Discharge Diagnosis Discharge Diagnosis (1) Suspected COVID-19 virus infection: Code(s): Z20.822 - Contact with and (suspected) exposure to COVID-19 Status: Acute Assessment and Plan: ruled out (2) Tobacco abuse: Code(s): Z72.0 - Tobacco use Status: Chronic Assessment and Plan: encouraged tobacco cessation (3) Opioid overdose: Qualifiers: Encounter type: initial encounter Injury intent: accidental or unintentional Qualified Code(s): T40.2X1A - Poisoning by other opioids, accidental (unintentional), initial encounter Code(s): T40.2X1A - Poisoning by other opioids, accidental (unintentional), initial encounter Status: Acute Assessment and Plan: resolved (4) Aspiration pneumonia: Qualifiers: Aspiration pneumonia type: unspecified Laterality: bilateral Lung location: lower lobe of lung Qualified Code(s): J69.0 - Pneumonitis due to inhalation of food and vomit Code(s): J69.0 - Pneumonitis due to inhalation of food and vomit Status: Acute Assessment and Plan: patient was treated for aspiration DS: Summary Hospital Course Reason for hospitalization: Opiate OD Hospital Course: this is a 34-year-old male with known significant past medical history that was brought to the emergency room through EMS due to unresponsive patient overdosed on opiates and aspirated his own vomit and secretions. he was treated for aspiration pneumonia and was ruled out for COVID-19 pneumonia no event during the hospitalization. Patient was discharged but he left prior to discharge process being completed. procedures done: No procedures consults: no consults Time Spent with Patient Time attestation: Total time spent providing and/or coordinating discharge services: Patient was seen and examined on 09/13/20. Patient left shortly after before discharge process had been completed Exam Const: General: comfortable, no acute distress, well developed, alert and awake Nutritional Appearance: average body habitus Orientation/consciousness: patient oriented x3 HENMT: Head: normal to inspection, normocephalic and atraumatic Ears: hearing grossly normal bilaterally Face and sinus: normal facial exam Eyes: General: appearance normal, both eyes and all related structures Pupils: Equal, round and reactive pupils present EOM: EOMs intact bilaterally Neck: Neck: full ROM, no lymphadenopathy and no JVD Thyroid: thyroid normal Lymphatic: no lymphadenopathy noted Resp: Effort & Inspection: normal respiratory effort and able to speak in complete sentences Auscultation: clear to auscultation bilaterally Cardio: Jugular venous distension: no JVD Rate: regular rate Rhythm: regular rhythm Heart sounds: S1 normal heart sound present and S2 normal heart sound present GI: GI Palp: Yes Soft to palpation and Yes No hepatosplenomegaly present : General: Yes deferred Skin: Rashes: no rashes Wounds: no wounds Neuro: General: patient oriented x3 and CN's II-XI intact bilaterally Cranial nerves: Yes CN's II-XII intact bilaterally and Yes Equal, round and reactive pupils present Cognition (Neuro): normal cognition Speech: normal speech Gait exam (Neuro): Normal gait present Motor exam (neuro): 5/5 motor strength present throughout Extrem: General: normal to inspection, full ROM, no joint enlargement and no pedal edema Discharge Plan Discharge Attending physician on discharge: Jean Wetzel V. Consulting providers: Keanu Ybarra ; Alessandra Dumont ; Devaughn Ford ; Yogesh Harris ; Kory Islas Discharging Clinician: Jean Wetzel V. Patient Disposition: Left Against Medical Advice Activity: as tolerated Diet: heart healthy
== END 2020-09-14 10:40 | disposition left against medical advice (07) | DRG 812 ==
LOC: ANHED 18:16 → ANHIMU 22:25 → ANH2MED 09-14 11:31 → ANHIMU 09-17 15:02
PROVIDERS: Nurse Practitioner; Admitting Provider Internal Medicine; Emergency Provider Emergency Medicine; Visit Provider Internal Medicine
DX: T40.2X1A Poisoning by other opioids, accidental (unintentional), initial encounter (principal); J69.0 Pneumonitis due to inhalation of food and vomit; Z20.822 Contact with and (suspected) exposure to COVID-19; F17.210 Nicotine dependence, cigarettes, uncomplicated; R09.02 Hypoxemia; F11.10 Opioid abuse, uncomplicated
CPT/HCPCS: 36415; 36600; 71045; 71275; 80048; 80053; 80307; 81001; 82375; 82805; 83050; 83735; 83880; 84484; 85025; 85055; 85380; 85610; 85730; 87040; 87077; 87086; 93005; 94640; 96374; 96375; 99285; C9803; J1650; J1956; J2310; J2405; J2543; J7030; Q9967; U0003; U0005

== ENCOUNTER 2021-04-02 00:07 | Emergency (ER) | payer OTHER, SELFPAY ==
--- NOTE | ~2021-04-02 | XR_ITS ---
EXAMINATION: XR forearm RT 2V DATE: 04/02/2021 00:41 INDICATION: Abscess. TECHNIQUE: 2 views of right forearm were obtained. COMPARISON: None. FINDINGS: Bone alignment is normal. No fracture. Joint spaces are well maintained. There is no elbow joint effusion. There is subcutaneous edema of the forearm. IMPRESSION: 1. No fracture or radiopaque foreign body. Reviewed, dictated and finalized at location A.
[2021-04-02 00:24] VITALS: BP 131/75; PULSE 116; RESP 18; TEMP 36.9; O2SAT 100
--- NOTE | 2021-04-02 02:25 | ED.SKABFB ---
HPI - Skin/Abscess/Foreign Bdy General Chief complaint: Skin/Abscess/Foreign Body Stated complaint: abcess on arm Time Seen by Provider: 04/02/21 02:16 Source: patient History of Present Illness HPI narrative: Patient presents with concern for abscess. Reports pain is right forearm is achy, constant, worse with trying to move his elbow does not radiate. Reports a history of abscesses in this feels similar to his prior abscess. Is been getting worse over the past 2 days reports subjective chills but denies any nausea vomiting cough, myalgias. Patient does report history of IV drug use has not used in 1 week Related Data Home Medications Medication Instructions Recorded Confirmed No Home Medications 07/26/20 09/11/20 Allergies Allergy/AdvReac Type Severity Reaction Status Date / Time No Known Allergies Allergy Verified 04/02/21 02:39 Review of Systems Review of Systems: CONSTITUTIONAL: Reports chills EYES: Denies visual changes, redness, or discharge. ENT: Denies rhinorrhea, congestion, sore throat, or otalgia. CARDIOVASCULAR: Denies chest pain, palpitations, or edema. RESPIRATORY: Denies cough or dyspnea. GASTROINTESTINAL: Denies abdominal pain, nausea, vomiting, or diarrhea. GENITOURINARY: Denies dysuria or hematuria. SKIN: Denies rash or itching. MUSCULOSKELETAL: Denies back pain, joint pain, or myalgia. NEUROLOGIC: Denies headache, numbness, dizziness, or weakness. PSYCHIATRIC: Denies anxiety or depression. All systems reviewed & are unremarkable except as noted in HPI and below PMFSH Past Medical History Medical History Tobacco abuse Surgical History Surgical History No pertinent past surgical history Family History Family History Mother Hepatitis Other Unknown family medical history Social History Social History Social History: The patient has a 16-year-old son. The patient smokes a half pack a cigarettes a day. He is from his lives with his girlfriend. He is not currently working at this time. He tends to use heroin and fentanyl but does not use marijuana. Denies any alcohol use. The patient tells me does not have a durable power attorney at law for healthcare and that he is a full code. Smoking packs per day: 0.5 Smoking cigarettes per day: 10.0 Years smoked: 20 Smoking pack-years: 10.00 Smoking status: Current every day smoker Tobacco type: cigarettes Second hand tobacco smoke exposure: Yes Alcohol intake: never Substance use: current Substance use type: heroin and opiates Gender identity (if verbalized by the patient): Male Sexual Orientation (if Verbalized by the Patient): Straight or Heterosexual Spiritual care concerns: No Exam Narrative: GENERAL: Well-appearing, well-nourished, and in no acute distress. HEAD: Normocephalic, atraumatic. EYES: PERRLA and EOMI. ENT: Nares clear, no rhinorrhea or epistaxis. Mucous membranes moist. NECK: Supple. No masses. No JVD EXTREMITIES: Focal area of edema just distal to the elbow with surrounding erythema. There is warmth and tenderness. Tenderness is most noted central aspect of the erythema there is no open or draining wounds SKIN: Warm, dry, no rash. NEURO: No focal deficits. Alert and oriented x3. PSYCH: Normal mood and affect. Course Reevaluation(s) Reevaluation #1: Patient reports feeling much improved. Patient comfortable with the outpatient plan. Date: 04/02/21 Time: 03:38 Vital Signs Vital signs: Vital Signs Temperature 36.9 C 04/02/21 00:24 Pulse Rate 116 H 04/02/21 00:24 Respiratory Rate 18 04/02/21 00:24 Blood Pressure 131/75 04/02/21 00:24 Pulse Oximetry 100 04/02/21 00:24 Temperature 36.9 C 04/02/21 00:24 Pulse Rate 77 04/02/21 03:47 Re
[2021-04-02 02:38] VITALS: BP 150/96; PULSE 78; RESP 18; O2SAT 100
[2021-04-02 03:47] VITALS: BP 118/66; PULSE 77; RESP 18; O2SAT 100
== END 2021-04-02 03:47 | disposition home or self-care (01) ==
PROVIDERS: Emergency Provider Emergency Medicine
DX: L02.413 Cutaneous abscess of right upper limb (principal); L03.113 Cellulitis of right upper limb; F17.210 Nicotine dependence, cigarettes, uncomplicated
CPT/HCPCS: 10060; 73090; 99283